=== PATIENT | male | born 1990 | race Caucasian/White ===

== ENCOUNTER → 2016-07-31 22:00 | Emergency (ER) | payer OTHER ==
[~2016-07-31 22:00] MED LIST: ATARAX PO; BACTRIM 400-801 TA1 PO; BUSPAR15 M3 DOB; KEFLEX500 M1 PO; MEDROL DOSEPAK4 MG PO; MULTI VITAMIN1 EACH PO
== END | disposition left against medical advice (07) ==
LOC: CED 22:00
DX: Z53.21 Procedure and treatment not carried out due to patient leaving prior to being seen by health care provider (principal)

== ENCOUNTER → 2016-08-15 | Outpatient (CLI) | payer OTHER ==
--- NOTE | ~2016-08-15 | US6 ---
[facility] A Service of [facility] RADIOLOGY TEXT RESULTS PATIENT: MANPREET ALLISON LOCATION: [facility] : [birth year] UNIT #: [id number] AGE: [address]: DIANE HOFFMAN SEX: M ORDER DR: [id number] [facility] [address] [place], [place] [address] [id number] O MR#: [id number] Acc #: [id number] NAME: MANPREET ALLISON : 1990 SEX: M STUDY DATE/TIME: 08/15/2016 10:26 UNIT: [facility] ROOM: STUDY DESCRIPTION: US Abdominal Limited Attending Physician: Mago Beyer Referring Physician: Mago Beyer Primary Care Physician: Michelle Grimm M.D. MEDICAL IMAGING REPORT This report is preliminary unless electronic signature is present EXAM Right upper quadrant ultrasound 08/15/2016 HISTORY Hepatitis B. Observation for hepatocellular carcinoma. FINDINGS The liver demonstrates an increase in echotexture with attenuation of the ultrasound beam characteristic of fatty infiltration. No cystic or solid mass lesions were seen in the liver. The intra- and extrahepatic bile ducts are not dilated. The gallbladder is normal with no evidence of cholelithiasis, wall thickening or pericholecystic fluid. The common duct measures 5 mm. The pancreas and right kidney are normal. IMPRESSION Fatty infiltration of the liver. Otherwise, negative right upper quadrant ultrasound. Dictated by... Jason Cobb M.D. THIS IS AN ELECTRONICALLY VERIFIED REPORT Jason Cobb M.D. at 08/16/2016 8:00 AM MODE/shabnam TD: 08/15/2016 14:25 JOB #: [id number] MEDICAL IMAGING REPORT COPY
== END | disposition home or self-care (01) ==
LOC: CGUS 10:00
DX: B19.10 Unspecified viral hepatitis B without hepatic coma (principal); K76.0 Fatty (change of) liver, not elsewhere classified
CPT/HCPCS: 76705

== ENCOUNTER 2016-10-20 12:23 | Emergency (ER) | payer OTHER ==
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
[~2016-10-20 12:23] MED LIST changes: -BUSPAR15 M3 DOB; -MULTI VITAMIN1 EACH PO
[2016-10-20] MEDS ORDERED: BUSPAR15 M3 DOB (12:31)
[2016-10-20] MEDS ORDERED: MULTI VITAMIN1 EACH PO (12:32)
== END 2016-10-20 13:50 | disposition home or self-care (01) ==
LOC: SED 12:23
DX: S06.0X0A Concussion without loss of consciousness, initial encounter (principal); F17.210 Nicotine dependence, cigarettes, uncomplicated; Z23 Encounter for immunization; W22.8XXA Striking against or struck by other objects, initial encounter; Y92.69 Other specified industrial and construction area as the place of occurrence of the external cause; Y99.0 Civilian activity done for income or pay
CPT/HCPCS: 70450; 90471; 90715; 99284